=== PATIENT | male | born 1985 | race Caucasian/White ===

== ENCOUNTER 2019-10-30 14:16 | Outpatient (CLI) | payer BC, SELFPAY ==
--- NOTE | ~2019-10-30 | XR_ITS ---
EXAMINATION: XR knee RT 3V DATE: 10/30/2019 14:47 INDICATION: Right lower leg injury TECHNIQUE: AP, lateral and oblique views of the right knee were obtained COMPARISON: None. FINDINGS: Alignment is normal. No fracture. Joint spaces are normal. No joint effusion/layering lipohemarthros is. Soft tissues are unremarkable. IMPRESSION: 1. Negative right knee radiographs. Reviewed, dictated and finalized at location A.
--- NOTE | ~2019-10-30 | XR_ITS ---
EXAMINATION: XR ankle RT min 3V, XR foot RT min 3V DATE: 10/30/2019 14:47 INDICATION: Right foot and ankle pain post unspecified injury TECHNIQUE: 1. Anteroposterior, mortise, additional oblique and lateral view of the right ankle were obtained. 2. Dorsoplantar, two oblique and lateral views of the right foot were obtained. COMPARISON: None. FINDINGS: Alignment of the right foot and ankle is normal. No acute fracture. There are couple small corticated heterotopic ossicles along the dorsal margin of the talonavicular joint and along the anterior mireille n of the tibiotalar joint which are likely sequela of old trauma. 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 Joint spaces are otherwise relatively preserved. No ankle joint effusion. Th e soft tissues are unremarkable. IMPRESSION: 1. No acute osseous abnormality at the right foot or ankle. Reviewed, dictated and finalized at location A. IMPRESSION: 1. No acute osseous abnormality at the right foot or ankle.
== END 2019-10-30 14:17 | disposition home or self-care (01) ==
PROVIDERS: PCP Internal Medicine; Visit Provider Clinical Nurse Specialist
DX: S99.919A Unspecified injury of unspecified ankle, initial encounter (principal); S89.90XA Unspecified injury of unspecified lower leg, initial encounter; M79.673 Pain in unspecified foot; X58.XXXA Exposure to other specified factors, initial encounter
CPT/HCPCS: 73562; 73610; 73630